=== PATIENT | female | born 1945 | race African-American/Black ===

== ENCOUNTER 2017-02-10 13:21 | Emergency (ER) | payer OTHER ==
[~2017-02-10] VITALS: Ht 152.4 cm; Wt 107.0 kg
[~2017-02-10 13:21] MED LIST: AMLO10TA55 PO; BENA20TA3 PO; LORA0.5T83 PO; METO-391 PO; OMEP40CA PO; VICOT PO
[2017-02-10] MEDS ORDERED: LEVO250 PO (13:27)
[2017-02-10] MEDS ORDERED: 0.9% SODIUM CHLORIDE 5 ML NEB SOLUTION NEB ONE ×2 (13:37→16:02)
[2017-02-10] MEDS ORDERED: ALBUTEROL SULFATE 2.5 MG/0.5 ML NEB SOLUTION NEB ONE ×2 (13:45→15:50)
[2017-02-10 15:00] LABS: BASOPHILS % (AUTO) 0.3 % (0.0-2.0); EOSINOPHILS % (AUTO) 3.4 % (1.0-6.0); HEMATOCRIT 39.1 % (36-46); HEMOGLOBIN 13.1 g/dL (12.0-16.0); LYMPHOCYTES # (AUTO) 4.1 K/uL (1.0-4.8); LYMPHOCYTES % (AUTO) 46.4 % (22.0-44.0); MEAN CORPUSCULAR HEMOGLOBIN 28.3 pg (26.0-34.0); MEAN CORPUSCULAR HGB CONC 33.4 G/dL (31.0-37.0); MEAN CORPUSCULAR VOLUME 85 fL (80-100); MONOCYTES # (AUTO) 0.7 K/uL (0.1-1.0); MONOCYTES % (AUTO) 8.1 % (2.0-9.0); NEUTROPHILS # (AUTO) 3.7 K/uL (1.8-7.7); NEUTROPHILS % (AUTO) 41.8 % (40.0-70.0); PLATELET COUNT (AUTO) 269 K/uL (150-450); RED BLOOD CELL COUNT(AUTO) 4.62 MIL/uL (4.00-5.20); RED CELL DISTRIBUTION WIDTH 14.5 % (11.5-14.5); WHITE BLOOD COUNT (AUTO) 8.9 K/uL (4.5-11.0)
[2017-02-10 15:07] LABS: ANION GAP 8 mmol/L (8-16); CALCIUM, TOTAL 8.9 mg/dL (8.8-10.5); CARBON DIOXIDE 29 mmol/L (22-29); CHLORIDE 103 mmol/L (98-107); CREATININE 0.85 mg/dL (0.60-1.30); GLOMERULAR FILTR. RATE CALC > 60 mL/min (>60); POTASSIUM 3.9 mmol/L (3.5-5.1); SODIUM SERUM 140 mmol/L (136-145); UREA NITROGEN, BLOOD 10 mg/dL (7-18)
[2017-02-10 15:09] LABS: INR 1.1 (0.9-1.1); PROTHROMBIN TIME 11.3 SEC (9.4-11.6)
[2017-02-10] MEDS ORDERED: LEVOFLOXACIN 500 MG/D5% WATER 100 ML IV ONE (15:15)
[2017-02-10] MEDS ORDERED: MethylPREDNISolone SOD SUCC 125 MG/2 ML VIAL IVP ONE (15:15)
[2017-02-10 15:21] LABS: B-TYPE NATRIURETIC PEPTIDE 9 pg/mL (0-100)
[2017-02-10 15:33] LABS: ALANINE AMINOTRANSFERASE 15 U/L (12-78); ALBUMIN 3.1 g/dL (3.4-5.0); ASPARTATE AMINOTRANSFERASE 16 U/L (15-37); BILIRUBIN,TOTAL 0.3 mg/dL (0.1-1.0); CREATINE KINASE MB 0.9 ng/mL (0-5); CREATINE KINASE, TOTAL 182 U/L (26-192); TOTAL PROTEIN, SERUM 7.7 g/dL (6.4-8.2)
[2017-02-10 15:39] VITALS: BP 127/57
[2017-02-10] MEDS: TraMADol HCL 50 MG TABLET PO ONE ×2 (15:46→15:53)
== END 2017-02-10 16:33 | disposition home or self-care (01) ==
LOC: EMS 13:22
DX: J45.909 Unspecified asthma, uncomplicated (principal); E78.00 Pure hypercholesterolemia, unspecified; F41.9 Anxiety disorder, unspecified; I10 Essential (primary) hypertension; R79.1 Abnormal coagulation profile; Z88.2 Allergy status to sulfonamides; Z88.5 Allergy status to narcotic agent; Z88.6 Allergy status to analgesic agent; Z88.8 Allergy status to other drugs, medicaments and biological substances; Z96.652 Presence of left artificial knee joint; Z90.710 Acquired absence of both cervix and uterus
CPT/HCPCS: 36415; 71010; 80053; 82550; 82553; 83880; 84484; 85025; 85610; 85730; 93005; 94640; 96374; 99285; J2930; J1956

== ENCOUNTER 2022-09-02 07:04 | Day surgery (SDC) | payer OTHER ==
[~2022-09-02] VITALS: Ht 160 cm; Wt 90.9 kg
[~2022-09-02 07:04] MED LIST changes: +BENA-8 PO; -BENA20TA3 PO; +LEVO250T75 PO; -LORA0.5T83 PO; +SODIUM CHLORIDE 0.9% 1,000 ML IV ONE; -VICOT PO
[2022-09-02] MEDS ORDERED: ALBUTEROL SULFATE 2.5 MG/0.5 ML NEB SOLUTION NEB ONE (07:05)
[2022-09-02] MEDS ORDERED: LIDOCAINE 4% 50 ML SOLUTION TP ONE (07:05)
[2022-09-02] MEDS ORDERED: LIDOCAINE 2% 11 ML JELLY TP ONE (07:05)
[2022-09-02] MEDS ORDERED: BENZOCAINE 20% 50 MCG/SPRAY 57 GM TP ONE ×2 (07:05)
[2022-09-02] MEDS ORDERED: SODIUM CHLORIDE 0.9% 1,000 ML ONE (07:31)
[2022-09-02] MEDS ORDERED: OXYC-490 PO (08:23)
[2022-09-02] MEDS ORDERED: LISI-658 PO (08:23)
[2022-09-02] MEDS ORDERED: MONT-35 PO (08:23)
[2022-09-02] MEDS ORDERED: METO-558 PO (08:23)
[2022-09-02] MEDS ORDERED: FLUT16SP NASAL (08:23)
[2022-09-02] MEDS ORDERED: ALBU18HF12 IH (08:23)
[2022-09-02] MEDS ORDERED: DIAZ10 PO (08:23)
[2022-09-02] MEDS ORDERED: SUCR1TAB28 PO (08:23)
[2022-09-02] MEDS ORDERED: PANT-31 PO (08:23)
[2022-09-02] MEDS ORDERED: LINA145C PO (08:23)
[2022-09-02] MEDS ORDERED: MIDAZOLAM HCL 2 MG/2 ML VIAL ONE (08:52)
[2022-09-02] MEDS ORDERED: FentaNYL CITRATE PF 100 MCG/2 ML VIAL ONE (08:53)
[2022-09-02] MEDS ORDERED: MethylPREDNISolone SOD SUCC 125 MG/2 ML VIAL ONE (09:24)
[2022-09-02] MEDS ORDERED: MethylPREDNISolone SOD SUCC 125 MG/2 ML VIAL IVP ONE (10:00)
== END 2022-09-02 13:05 | disposition home or self-care (01) ==
LOC: SURGERY 07:04
PROVIDERS: ATTEND Internal Medicine Critical Care Medicine
DX: R05.3 Chronic cough (principal); R91.1 Solitary pulmonary nodule; J98.09 Other diseases of bronchus, not elsewhere classified; J98.8 Other specified respiratory disorders; Z98.890 Other specified postprocedural states; I10 Essential (primary) hypertension; F41.9 Anxiety disorder, unspecified; Z79.899 Other long term (current) drug therapy
CPT/HCPCS: 31623; 88112; 87206; 87101; 87220; 87070; 31624; 94640; 71045; 87015; J3010; J2250; J2930; Q9967; J7030; 99285; J7613; Z7610

== ENCOUNTER 2024-10-25 07:23 | Day surgery (SDC) | payer OTHER ==
[~2024-10-25] VITALS: Ht 160 cm; Wt 86.2 kg
[~2024-10-25 07:23] MED LIST changes: +ALBU18HF12 IH; -BENA-8 PO; +DIAZ10 PO; +FLUT16SP NASAL; -LEVO250T75 PO; +LINA145C PO; +LISI-658 PO; +METO-325 PO; +MONT-35 PO; -OMEP40CA PO; +OXYC-490 PO; +PANT-31 PO; -SODIUM CHLORIDE 0.9% 1,000 ML IV ONE; +SUCR1TAB28 PO
[2024-10-25] MEDS ORDERED: MIDAZOLAM HCL 2 MG/2 ML VIAL ONE (08:16)
[2024-10-25] MEDS ORDERED: FentaNYL CITRATE PF 100 MCG/2 ML VIAL ONE (08:16)
[2024-10-25] MEDS ORDERED: MethylPREDNISolone SOD SUCC 125 MG/2 ML VIAL ONE (09:10)
[2024-10-25 10:10] VITALS: PULSE 69; RESP 16; O2SAT 100
[2024-10-25] MEDS: MethylPREDNISolone SOD SUCC 125 MG/2 ML VIAL IVP ONE (10:33)
[2024-10-25] MEDS: SODIUM CHLORIDE 0.9% 1,000 ML IV ONE (10:34)
== END 2024-10-25 14:35 | disposition home or self-care (01) ==
LOC: SURGERY 07:23
PROVIDERS: ATTEND Internal Medicine Critical Care Medicine
DX: R05.3 Chronic cough (principal); R04.2 Hemoptysis; J38.4 Edema of larynx; B37.0 Candidal stomatitis; I10 Essential (primary) hypertension; D64.9 Anemia, unspecified; M19.90 Unspecified osteoarthritis, unspecified site; Z98.890 Other specified postprocedural states
CPT/HCPCS: 31623; 87206; 87101; 87220; 87070; 88108; 31624; 94640; 71045; 87015; J3010; J2250; J2919